=== PATIENT | male | born 1970 ===

== ENCOUNTER 2017-02-24 15:49 | Emergency (ER) | payer OTHER ==
[2017-02-24] MEDS ORDERED: Ketorolac 60 MG/2 ML SDV IM ONE (16:21)
--- NOTE | 2017-02-24 18:00 | EDM.PDOC ---
ED HPI GENERAL MEDICAL PROBLEM - General Chief Complaint: Back Pain or Injury Stated Complaint: BACK PAIN WORK INJURY Time Seen by Provider: 02/24/17 16:20 Source of Information: Reports: Patient History Limitations: Reports: No Limitations - History of Present Illness INITIAL COMMENTS - FREE TEXT/NARRATIVE: History of present illness: [46-year-old male presenting with acute onset of low back pain status post falling down 10 steps at his work.] Review of systems: As per history of present illness and below otherwise all systems reviewed and negative. Past medical history: As per history of present illness and as reviewed below otherwise noncontributory. Surgical history: As per history of present illness and as reviewed below otherwise noncontributory. Social history: No reported history of drug or alcohol abuse. Family history: As per history of present illness and as reviewed below otherwise noncontributory. Physical exam: HEENT: Atraumatic, normocephalic, pupils reactive, negative for conjunctival pallor or scleral icterus, mucous membranes moist, throat clear, neck supple, nontender, trachea midline. Lungs: Clear to auscultation, breath sounds equal bilaterally, chest nontender. Heart: S1S2, regular, negative for clicks, rubs, or JVD. Abdomen: Soft, nondistended, nontender. Negative for masses or hepatosplenomegaly. Negative for costovertebral tenderness. Pelvis: Stable nontender. Genitourinary: Deferred. Rectal: Deferred. Extremities: Atraumatic, negative for cords or calf pain. Neurovascular unremarkable. Neuro: Awake, alert, oriented. Cranial nerves II through XII unremarkable. Cerebellum unremarkable. Motor and sensory unremarkable throughout. Exam nonfocal. Global assessment is benign save subjective complaint is noted in the history of present illness Diagnostics: [Lumbar x-ray] Therapeutics: [] Impression: [Several areas of degenerative changes in lower back, acute on chronic back pain ] Plan: [Muscle relaxer anti-inflammatory workman's comp] Definitive disposition and diagnosis as appropriate pending reevaluation and review of above. back Pain Score (Numeric/FACES): 6 - Related Data Allergies Allergy/AdvReac Type Severity Reaction Status Date / Time No Known Allergies Allergy Verified 02/24/17 16:26 Home Meds: Home Meds . [No Known Home Meds] 02/24/17 [History] Past Medical History - Past Health History Medical/Surgical History: Denies Medical/Surgical History Social & Family History - Family History Family Medical History: Noncontributory - Tobacco Use Smoking Status *Q: Never Smoker - Alcohol Use Days Per Week of Alcohol Use: 3 Number of Drinks Per Day: 3 Total Drinks Per Week: 9 - Recreational Drug Use Recreational Drug Use: No ED ROS GENERAL - Review of Systems Review Of Systems: See Below (History of present illness) ED EXAM,LOWER BACK PAIN/INJURY - Physical Exam Exam: See Below (See history of present illness) Course - Vital Signs Last Recorded V/S: Last Vital Signs Temp 36.3 C 02/24/17 16:35 Pulse 83 02/24/17 16:35 Resp 18 02/24/17 16:35 BP 129/71 02/24/17 16:35 Pulse Ox 99 02/24/17 16:35 - Orders/Labs/Meds Orders: Active Orders 24 hr Category Date Time Status Lumbar Spine 2 or 3V [CR] Stat Exams 02/24/17 16:22 Taken Meds: Medications Discontinued Medications Generic Name Dose Route Start Last Admin Trade Name Prasanth PRN Reason Stop Dose Admin Ketorolac Tromethamine 60 mg 02/24/17 16:21 02/24/17 16:27 Toradol IM 02/24/17 16:22 60 mg ONETIME ONE Administration Departure - Departure Time of Disposition: 17:59 Disposition: Home, Self-Care 01 Condition: Good Clinical Impression: Back pain - Discharge Information Instructions: Muscle Strain, [id number], Back Injury Prevention, [id number] , Back Pain, Adult, [id number] Forms: ED Department Discharge Additional Instructions: The following information is given to patients seen in the emergency department who are being discharged to home. This information is to outline your options for follow-up care. We provide all patients seen in our emergency department with a follow-up referral. The need for follow-up, as well as the timing and circumstances, are variable depending upon the specifics of your emergency department visit. If you don't have a primary care physician on staff, we will provide you with a referral. We always advise you to contact your personal physician following an emergency department visit to inform them of the circumstance of the visit and for follow-up with them and/or the need for any referrals to a consulting specialist. The emergency department will also refer you to a specialist when appropriate. This referral assures that you have the opportunity for follow-up care with a specialist. All of these measure are taken in an effort to provide you with optimal care, which includes your follow-up. Under all circumstances we always encourage you to contact your private physician who remains a resource for coordinating your care. When calling for follow-up care, please make the office aware that this follow-up is from your recent emergency room visit. If for any reason you are refused follow-up, please contact the [facility] Emergency Department at and asked to speak to the emergency department charge nurse. Take medication as directed Follow up with PCP 1-2 days Return to ED as needed as discussed Follow-up with workman's comp as needed to care [facility] [address] [place] [id number] - My Orders Last 24 Hours: My Active Orders 02/24/17 16:22 Lumbar Spine 2 or 3V [CR] Stat - Assessment/Plan Last 24 Hours: My Active Orders 02/24/17 16:22 Lumbar Spine 2 or 3V [CR] Stat
[2017-02-24 18:11] VITALS: BP 123/67
--- NOTE | 2017-02-25 07:51 | CR ---
EXAM DATE: 02/24/17 PATIENT'S AGE: 46 Patient: TALAT CANNON Facility: [place], [place] Site . Site : [id number] Study: XRay Spine Lumbar [id number] 5:09:47 PM Ordering Physician: Doctor Mclaughlin Final Report: HISTORY: Pain, fell down stairs this morning at work. FINDINGS: Standing AP, lateral and coned lateral views lumbar spine demonstrate 5 lumbar vertebral bodies. There is decreased disc space at L1-2 and L4-5. Mild peridiscal spurring seen throughout the lumbar spine. Vertebral body heights are maintained. There is trace anterior spondylolisthesis of L5 on S1. Coned lateral view suggests there may be chronic L5 pars defects. IMPRESSION: 1. Degenerative changes of the discs in the lumbar spine as described. 2. 2 anterior spondylolisthesis of L5 on S1. This may be from chronic pars defects. 3. No acute compression fracture. Dictated by Maxine Bui MD @ 02/24/2017 5:41:08 PM Dictated by: Maxine Bui MD @ 02/24/2017 17:41:15 (Electronic Signature) Report Signed by Proxy. JANNY
== END 2017-02-24 18:09 | disposition home or self-care (01) ==
LOC: MW.ED 15:49
DX: M47.896 Other spondylosis, lumbar region (principal); W10.9XXA Fall (on) (from) unspecified stairs and steps, initial encounter; Y99.0 Civilian activity done for income or pay
CPT/HCPCS: 72100; 96372; 99283; J1885